=== PATIENT | female | born 2000 | race African-American/Black ===

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

== ENCOUNTER 2021-01-09 17:44 | Emergency (ER) | payer OTHER ==
[2021-01-09 18:25] LABS: #Eosinphils 0.1 thou/uL (0.0-0.7); #Lymphocytes 1.4 thou/uL (1.20-3.40); #Monocytes 0.6 thou/uL (0.11-0.59); #Neutrophils 7.2 thou/uL (1.40-6.50); %Basophils 0.1 % (0.0-1.0); %Eosinophils 0.6 % (0.0-10.0); %Lymphocytes 15.2 % (28.0-48.0); %Monocytes 6.5 % (0.0-4.0); %Neutrophils 77.6 % (31.0-61.0); Hemoglobin 9.7 g/dL (12.0-16.0); Mean Corpuscular HGB CONC 30.9 g/dL (32.0-36.0); Mean Corpuscular Hemoglobin 21.7 pg (25.0-35.0); Mean Corpuscular Volume 70.5 fL (78.0-98.0); Mean Platelet Volume 11.5 fL (7.4-10.4); Platelet Count 276 thou/uL (130-400); RBC Distribution Width 16.2 % (11.5-14.5); Red Blood Cell (RBC) Count 4.44 mill/uL (4.00-5.20); White Blood Cell (WBC) Count 9.3 thou/uL (4.8-10.8)
[2021-01-09 18:39] LABS: BHCG - Serum POSITIVE (NEGATIVE); Pregs Control Background? CLEAR/WHITE (CLR/WHITE); Pregs Control Bar Appear? YES (CONTROL BAR)
[2021-01-09 18:44] LABS: ALT (SGPT) 9 U/L (8-55); AST (SGOT) 12 U/L (5-30); Albumin 3.8 g/dL (3.5-5.0); Alkaline Phosphatase 123 U/L (40-100); Anion Gap 13 mmol/L (10-20); BUN (Urea Nitrogen) 8 mg/dL (8.4-21.0); Bilirubin, Total 0.3 mg/dL (0.2-1.2); Calc. Creatinine Clearance 0 mL/min (70-130); Calcium 9.9 mg/dL (7.8-10.44); Carbon Dioxide 27 mmol/L (22-29); Chloride 104 mmol/L (98-107); Globulin 3.5 g/dL (2.4-3.5); Glucose 99 mg/dL (70-105); Potassium 3.3 mmol/L (3.5-5.1); Protein, Total 7.3 g/dL (6.0-8.3); Sodium 141 mmol/L (136-145)
[2021-01-09] MEDS ORDERED: Ondansetron PF 4 MG/2 ML Vial ONE (19:07)
[2021-01-09 21:20] LABS: Bilirubin Negative (Negative); Blood, Urine Negative (Negative); Glucose, Urine (Dipstick) Normal (Negative); Ketone, Urine Greater than 150 mg/dL (Negative); Leukocyte 75 Leu/uL (Negative); Nitrite Negative (Negative); Protein, Urine (Dipstick) 100 mg/dL (Neg-Trace); RBC/HPF 0-3 HPF (0-3); Urobilinogen 6 mg/dL (Less than 2); pH, Urine 6.5 (5.0-9.0)
[2021-01-09 21:21] LABS: Bacteria/HPF 2+ HPF (None Seen); Clarity Cloudy (Clear)
== END 2021-01-09 21:55 | disposition home or self-care (01) ==
LOC: ERS 17:44
DX: R11.2 Nausea with vomiting, unspecified (principal); N39.0 Urinary tract infection, site not specified
CPT/HCPCS: 36415; 80053; 81003; 81015; 84703; 85025; 87086; 96374; J2405

== ENCOUNTER 2021-03-15 14:02 | Outpatient (CLI) | payer OTHER | END 2021-03-15 14:03 | disposition home or self-care (01) | LOC: BICULT 14:02 | PROVIDERS: ATTEND Family Medicine | DX: Z34.82 Encounter for supervision of other normal pregnancy, second trimester (principal) | CPT/HCPCS: 76805 ==

== ENCOUNTER 2022-08-16 05:48 | Inpatient (IN) | payer OTHER ==
[2022-08-16] MEDS ORDERED: Morphine 4 MG/ML VIAL ONE ×2 (06:18→10:07)
[2022-08-16] MEDS ORDERED: Ondansetron PF 4 MG/2 ML Vial ONE ×2 (06:18→10:07)
[2022-08-16 06:45] LABS: #Basophils 0.1 thou/uL (0.0-0.2); #Eosinphils 0.2 thou/uL (0.0-0.7); #Monocytes 1.1 thou/uL (0.11-0.59); %Basophils 0.5 % (0.0-1.0); %Eosinophils 1.4 % (0.0-10.0); %Monocytes 7.9 % (0.0-10.0); %Neutrophils 69.2 % (42.0-75.0); Hemoglobin 11.6 g/dL (12.0-16.0); Mean Corpuscular HGB CONC 33.4 g/dL (32.0-36.0); Mean Corpuscular Volume 80.8 fl (78.0-98.0); Mean Platelet Volume 8.7 fL (7.4-10.4); Platelet Count 276 10x3/uL (130-400); RBC Distribution Width 12.9 % (11.5-14.5); Red Blood Cell (RBC) Count 4.31 mill/uL (4.20-5.40); White Blood Cell (WBC) Count 14.4 10x3/uL (4.8-10.8)
[2022-08-16] MEDS ORDERED: Clindamycin/D5W 600 mg/50 ml Premix Bag ONE (07:06)
[2022-08-16 07:07] LABS: ALT (SGPT) Less than 7 U/L (8-55); AST (SGOT) 13 U/L (5-34); Alkaline Phosphatase 144 U/L (40-110); Anion Gap 13 mmol/L (10-20); BUN (Urea Nitrogen) 4 mg/dL (7.0-18.7); Bilirubin, Total 0.4 mg/dL (0.2-1.2); Calc. Creatinine Clearance 0 mL/min (70-130); Calcium 9.6 mg/dL (7.8-10.44); Carbon Dioxide 22 mmol/L (22-29); Chloride 110 mmol/L (98-107); Estimated GFR 116; Globulin 3.5 g/dL (2.4-3.5); Glucose 98 mg/dL (70-105); Potassium 3.5 mmol/L (3.5-5.1); Protein, Total 7.5 g/dL (6.0-8.3); Sodium 141 mmol/L (136-145)
[2022-08-16 07:52] LABS: BHCG - Serum Negative (NEGATIVE); Pregs Control Background? CLEAR/WHITE (CLR/WHITE); Pregs Control Bar Appear? YES (CONTROL BAR)
[2022-08-16] MEDS ORDERED: Ondansetron ODT 4 MG TAB PO PRN (10:31)
[2022-08-16] MEDS ORDERED: Acetaminophen 325 MG TAB PO PRN (10:31)
[2022-08-16] MEDS ORDERED: Ondansetron PF 4 MG/2 ML Vial IVP PRN (10:31)
[2022-08-16] MEDS ORDERED: Morphine 4 MG/ML VIAL SLOW IVP PRN (10:35)
[2022-08-16] MEDS ORDERED: Electrolyte Replacement Protocol 1 EACH FS SCH (10:45)
[2022-08-16] MEDS ORDERED: Electrolyte Replacement Protocol FS PRN (10:45)
[2022-08-16] MEDS ORDERED: Sodium Chloride 0.9% 1,000 ML IV SCH (10:45)
[2022-08-16] MEDS: Chlorhexidine Gluconate 15 ML UDCUP SSP SCH ×3 (12:10→21:05)
[2022-08-16] MEDS ORDERED: Iopamidol 370 76% 100 ML VIAL ONE (12:11)
[2022-08-16 12:14] VITALS: BMI 25.7
[2022-08-16] MEDS ORDERED: Chlorhexidine Gluconate 15 ML UDCUP SSP SCH (12:15)
[2022-08-16] MEDS ORDERED: Potassium Chloride 20 MEQ TAB PO SCH (14:00)
[2022-08-16] MEDS: Clindamycin/D5W 600 MG in Premix Bag 1 BAG IVPB SCH ×2 (14:41→21:05)
[2022-08-16] MEDS: Sodium Chloride 0.9% 1,000 ML IV SCH (17:33)
[2022-08-16] MEDS: HYDROcodone/Acetaminophen 5/325 mg Tablet PO PRN ×2 (17:40→23:16)
[2022-08-17] MEDS: Sodium Chloride 0.9% 1,000 ML IV SCH (00:53)
[2022-08-17] MEDS: Clindamycin/D5W 600 MG in Premix Bag 1 BAG IVPB SCH (05:11)
[2022-08-17 06:16] LABS: #Eosinphils 0.2 thou/uL (0.0-0.7); #Lymphocytes 3.1 thou/uL (1.20-3.40); #Neutrophils 7.4 thou/uL (1.40-6.50); %Basophils 0.4 % (0.0-1.0); %Eosinophils 1.7 % (0.0-10.0); %Lymphocytes 26.2 % (21.0-51.0); %Monocytes 8.7 % (0.0-10.0); Hemoglobin 9.6 g/dL (12.0-16.0); Mean Corpuscular HGB CONC 31.5 g/dL (32.0-36.0); Mean Corpuscular Hemoglobin 26.5 pg (27.0-31.0); Mean Corpuscular Volume 84.2 fl (78.0-98.0); Mean Platelet Volume 8.7 fL (7.4-10.4); Platelet Count 236 10x3/uL (130-400); RBC Distribution Width 12.9 % (11.5-14.5); Red Blood Cell (RBC) Count 3.61 mill/uL (4.20-5.40); White Blood Cell (WBC) Count 11.7 10x3/uL (4.8-10.8)
[2022-08-17 06:33] LABS: Anion Gap 10 mmol/L (10-20); BUN (Urea Nitrogen) 5 mg/dL (7.0-18.7); Calc. Creatinine Clearance 139 mL/min (70-130); Carbon Dioxide 22 mmol/L (22-29); Chloride 112 mmol/L (98-107); Estimated GFR 124; Glucose 93 mg/dL (70-105); Potassium 3.9 mmol/L (3.5-5.1); Sodium 140 mmol/L (136-145)
[2022-08-17] MEDS: Saccharomyces boulardii 250 MG CAP PO SCH (07:37)
[2022-08-17] MEDS ORDERED: GLYCOPYRROLATE/PF 0.2 MG/ML VIAL ONE (08:21)
[2022-08-17] MEDS ORDERED: Ondansetron PF 4 MG/2 ML Vial ONE (08:22)
[2022-08-17] MEDS: Chlorhexidine Gluconate 15 ML UDCUP SSP SCH ×3 (08:54→20:43)
[2022-08-17] MEDS ORDERED: EPINEPHrine 1 MG/ML AMP ONE (08:59)
[2022-08-17] MEDS ORDERED: Oxymetazoline HCl 0.05% (30 ML BOT) ONE (08:59)
[2022-08-17] MEDS ORDERED: Chlorhexidine Gluconate 15 ML UDCUP SSP ONE (08:59)
[2022-08-17] MEDS ORDERED: Lidocaine 1% (PF) 30 ML VIAL ONE (08:59)
[2022-08-17] MEDS ORDERED: fentaNYL PF 100 MCG/2 ML SYRINGE ONE (09:00)
[2022-08-17] MEDS ORDERED: Lidocaine 2% 6 ML SYR ONE (09:10)
[2022-08-17] MEDS ORDERED: NEOSTIGMINE 3 MG/3 ML SYR 3 MG/3 ML SYRINGE ONE (09:35)
[2022-08-17] MEDS ORDERED: Lidocaine 1% PF 5 ML VIAL ONE (09:35)
[2022-08-17] MEDS ORDERED: PHENYLEPHRINE-NS 100 MCG/ML 10 ML SYRINGE ONE (09:35)
[2022-08-17] MEDS ORDERED: Glycopyrrolate 0.2 MG/ML 5 ML SYRINGE ONE (09:35)
[2022-08-17] MEDS ORDERED: Rocuronium Bromide 10 MG/ML (10ML VIAL) ONE (09:35)
[2022-08-17] MEDS ORDERED: Dexamethasone 20 MG/5 ML VIAL ONE (09:35)
[2022-08-17] MEDS ORDERED: PROPOFOL 200 MG/20 ML VIAL ONE (09:35)
[2022-08-17] MEDS ORDERED: Ondansetron HCl/PF 4 MG/2 ML Vial IVP PRN (10:30)
[2022-08-17] MEDS ORDERED: Promethazine HCl 25 MG/ML VIAL IM PRN (10:30)
[2022-08-17] MEDS ORDERED: fentaNYL 50 mcg/mL 1 mL Vial ONE ×2 (10:32→10:47)
[2022-08-17] MEDS ORDERED: Meperidine HCl/PF 25 MG/ML VIAL ONE (10:38)
[2022-08-17] MEDS ORDERED: HYDROcodone/Acetaminophen 5/325 mg Tablet PO PRN (10:53)
[2022-08-17] MEDS: Dextrose 5 % And 0.9 % NaCl 1,000 ML IV SCH (11:28)
[2022-08-17] MEDS: HYDROcodone/Acetaminophen 5/325 mg Tablet PO PRN ×2 (14:16→20:47)
[2022-08-17] MEDS: Clindamycin/D5W 900 MG in Premix Bag 1 BAG IVPB SCH ×2 (14:16→21:01)
[2022-08-18] MEDS: Dextrose 5 % And 0.9 % NaCl 1,000 ML IV SCH ×2 (02:02→12:13)
[2022-08-18] MEDS: Clindamycin/D5W 900 MG in Premix Bag 1 BAG IVPB SCH ×2 (05:11→14:45)
[2022-08-18] MEDS: HYDROcodone/Acetaminophen 5/325 mg Tablet PO PRN (05:12)
[2022-08-18 06:00] VITALS: TEMP 98.7
[2022-08-18] MEDS: Saccharomyces boulardii 250 MG CAP PO SCH (08:42)
[2022-08-18] MEDS: Chlorhexidine Gluconate 15 ML UDCUP SSP SCH ×2 (08:42→14:34)
[2022-08-18 12:35] VITALS: BP 93/59
[2022-08-18] MEDS ORDERED: Clindamycin/D5W 600 MG in Premix Bag 1 BAG IVPB SCH ×2 (14:45→22:00)
[2022-08-18] MEDS ORDERED: Clindamycin/D5W 300 MG in Premix Bag 1 BAG IVPB SCH ×2 (14:45→22:00)
== END 2022-08-18 17:14 | disposition home or self-care (01) | DRG 159 ==
LOC: ERS 05:48 → T4-B 10:00 → OBSVTOIN 08-17 13:43
PROVIDERS: ADMIT Internal Medicine; ATTEND Internal Medicine
PROC: 0J910ZZ Drainage of Face Subcutaneous Tissue and Fascia, Open Approach (ICD-10-PCS; principal; 2022-08-17)
PROC: 0CTX0Z0 Resection of Lower Tooth, Single, Open Approach (ICD-10-PCS; 2022-08-17)
PROC: 0CDWXZ1 Extraction of Upper Tooth, Multiple, External Approach (ICD-10-PCS; 2022-08-17)
DX: M27.2 Inflammatory conditions of jaws (principal); K04.1 Necrosis of pulp; K01.1 Impacted teeth; R11.2 Nausea with vomiting, unspecified; Z88.6 Allergy status to analgesic agent
CPT/HCPCS: 36415; 70491; 80048; 80053; 84703; 85025; 87040; 87070; 87077; 87149; 87205; 96361; 96365; 96375; 96376; G0378; J0171; J1100; J2001; J2175; J2270; J2405; J2704; J3010; J3490; J7042; J7050; Q9967

== ENCOUNTER 2024-11-28 12:52 | Emergency (ER) | payer OTHER | END 2024-11-28 13:50 | disposition home or self-care (01) | LOC: ERS 12:52 | DX: S63.613A Unspecified sprain of left middle finger, initial encounter (principal); W22.8XXA Striking against or struck by other objects, initial encounter; Y93.02 Activity, running | CPT/HCPCS: 99283 ==

== ENCOUNTER 2024-12-07 20:51 | Emergency (ER) | payer OTHER, SELFPAY | END 2024-12-08 | disposition home or self-care (01) | LOC: ERS 20:51 | DX: M54.10 Radiculopathy, site unspecified (principal); M79.602 Pain in left arm ==

== ENCOUNTER 2025-01-11 15:44 | Emergency (ER) | payer SELFPAY ==
[2025-01-11] MEDS ORDERED: Acetaminophen 500 MG TAB ONE (15:51)
== END 2025-01-11 17:40 | disposition home or self-care (01) ==
LOC: ERS 15:44
DX: J06.9 Acute upper respiratory infection, unspecified (principal)
CPT/HCPCS: 71046; 87081; 87428; 87430